=== PATIENT | male | born 1990 | race Caucasian/White ===

== ENCOUNTER 2018-02-22 06:08 | Day surgery (SDC) | payer OTHER ==
[2018-02-22] MEDS ORDERED: ceFAZolin 3 GM/20 ML SYRINGE ONE (06:42)
[2018-02-22] MEDS ORDERED: LACTATED RINGERS 1,000 ML IV ONE (06:42)
[2018-02-22] MEDS ORDERED: BUPIVACAINE 0.5% PF 30 ML VIAL ONE (07:30)
[2018-02-22] MEDS ORDERED: BUPIVACAINE 0.5% PF 30 ML VIAL INFIL ONE (07:54)
[2018-02-22] MEDS ORDERED: fentaNYL 100 MCG/2 ML VIAL IVP ONE (08:00)
[2018-02-22] MEDS ORDERED: ONDANSETRON 4 MG/2 ML VIAL IVP ONE (08:00)
[2018-02-22] MEDS ORDERED: LIDOCAINE-MPF 2% 5 ML VIAL IM ONE (08:00)
[2018-02-22] MEDS ORDERED: PROPOFOL 200 MG/20 ML VIAL IVP ONE (08:00)
[2018-02-22] MEDS ORDERED: DEXAMETHASONE 4 MG/ML VIAL IVP ONE (08:00)
[2018-02-22] MEDS ORDERED: KETOROLAC 30 MG/ML VIAL IVP ONE (08:00)
[2018-02-22] MEDS ORDERED: MIDAZOLAM 2 MG/2 ML VIAL IVP ONE (08:00)
[2018-02-22] MEDS ORDERED: ceFAZolin 1 GM VIAL ONE (08:44)
--- NOTE | 2018-02-22 10:27 | OPERATIVE REPORT ---
DATE OF SERVICE: 02/22/2018 Physician: Dionicio Choi MD PREOPERATIVE DIAGNOSIS: Symptomatic umbilical hernia. POSTOPERATIVE DIAGNOSES: 1. Symptomatic incarcerated umbilical hernia. 2. Incarcerated ventral hernia. PROCEDURE PERFORMED: Open repair of incarcerated umbilical and ventral hernias with Ventralex soft tissue patch. ANESTHESIA: LMA plus local. SURGEON: Dionicio Choi MD ESTIMATED BLOOD LOSS: Minimal. DRAINS: None. COMPLICATIONS: None. FINDINGS: Two Incarcerated hernias were present, one of which was at the umbilicus and had a fascial defect of approximately 1 cm with preperitoneal fat incarcerated within the hernia sac. The second was a ventral hernia approximately 2 cm cephalad to the umbilical hernia, also with preperitoneal fat incarcerated within the hernia sac and also with a fascial defect of approximately 1 cm. A small Ventralex polypropylene soft tissue patch was used for the reconstruction. INDICATIONS: Patient is a 27-year-old gentleman with a recent onset of a painful umbilical bulge. Examination revealed a partially reducible, tender umbilical bulge. He was advised to undergo repair of his symptomatic umbilical hernia. TECHNIQUE: After informed consent, the patient was taken to the operating room where he was placed under general LMA anesthesia. Preoperative preparation included application of sequential calf compression boots and administration of 3 grams of cefazolin intravenously within an hour of the incision. His abdomen was clipped and prepared with ChloraPrep solution and draped in the usual sterile fashion; 30 mL of 0.5% Marcaine with epinephrine was infiltrated to create a field block in the periumbilical region. A transverse curvilinear infraumbilical incision was made approximately 4 cm in length and carried down to the subcutaneous tissues. Hemostasis achieved with electrocautery and 2-0 Vicryl ties. The umbilical dermis was dissected off of the hernia sac, which was mobilized circumferentially. The anterior fascia around the neck of the hernia sac was mobilized. The hernia sac was excised. Hernia contents were seen to be preperitoneal fat and could not be reduced and was excised with 2-0 Vicryl ties used for hemostasis and the fatty tissue discarded. As the anterior fascia was cleared circumferentially in preparation for fascial closure, a second hernia was identified cephalad to the first one in the ventral midline of similar size and characteristic. It was similarly fully exposed. The anterior fascia was cleared circumferentially. The hernia sac was excised. Hernia contents were able to be reduced into the peritoneal cavity after the fascial edges were mobilized. A common single defect was then created by dividing the midline fascia between the 2 defects and the fascial edges were mobilized circumferentially in the preperitoneal space of sufficient size to allow placement of the Ventralex patch, which was placed in a preperitoneal location after soaking in antibiotic solution containing gram of cefazolin per liter. After hemostasis was assured, the patch was placed in the preperitoneal location and was secured in place with fascial closure, which was accomplished in a transverse fashion, incorporating the tail of the mesh with interrupted 0 Ethibond sutures approximately 4-5 were used to complete the fascial closure overlying the mesh and anchoring the mesh in place. Again, after hemostasis had been achieved, the wound was irrigated with the antibiotic solution following which wound closure was accomplished in layers using 2-0 Vicryl to reapproximate the umbilical dermis to the anterior fascia, followed by 3-0 Vicryl for the subcutaneous tissues and 4-0 Monocryl subcuticular skin closure, followed by Dermabond. Anesthesia was terminated. The patient was transferred to the recovery room in satisfactory condition. Sponge and needle counts were correct x2. No drains were used. TD: 02/22/2018 09:36
[2018-02-22 10:39] VITALS: BP 147/86
== END 2018-02-22 06:09 | disposition home or self-care (01) ==
LOC: SDS 06:08
PROVIDERS: ATTEND Internal Medicine Gastroenterology
PROC: 0WUF0JZ Supplement Abdominal Wall with Synthetic Substitute, Open Approach (ICD-10-PCS; 2018-02-22)
PROC: 0WUF0JZ Supplement Abdominal Wall with Synthetic Substitute, Open Approach (ICD-10-PCS; principal; 2018-02-22 07:58)
DX: K42.0 Umbilical hernia with obstruction, without gangrene (principal); K43.6 Other and unspecified ventral hernia with obstruction, without gangrene
CPT/HCPCS: 49561; 49568; 49587; C1781; J7120